=== PATIENT | male | born 1975 | race Caucasian/White ===

== ENCOUNTER 2016-11-13 10:10 | Emergency (ER) | payer OTHER ==
--- NOTE | ~2016-11-13 | CT4 ---
[facility] A Service of [facility] RADIOLOGY TEXT RESULTS PATIENT: PRIETO RAJAN LOCATION: SED : 71 UNIT #: [id number] AGE: [address]: Shira Correa MD SEX: M ORDER DR: [id number] [id number] E MR#: [id number] Acc #: [id number] NAME: PRIETO RAJAN : 1975 SEX: M STUDY DATE/TIME: 11/13/2016 12:09 UNIT: SED ROOM: STUDY DESCRIPTION: CT Abd and Pelv Wo Cont Attending Physician: Shira Correa M.D. Ordering Physician: Shira Correa M.D. Primary Care Physician: No Primary Care Physician MEDICAL IMAGING REPORT This report is preliminary unless electronic signature is present. EXAM CT of the abdomen and pelvis without contrast. HISTORY Patient had appendectomy 5 months ago and has abdomen pain radiating to the back since then. COMPARISON 11/27/2015 TECHNIQUE Axial 3 mm images were obtained through the abdomen and pelvis without IV or oral contrast. This CT exam was performed with one or more of the following radiation dose reduction techniques: automatic exposure control, adjustment of mA and/or kV according to patient size, and iterative reconstruction. FINDINGS The lung bases are clear. The liver, gallbladder, spleen, pancreas, adrenal glands, and kidneys are normal. Coronal and sagittal reconstructions were generated. The appendix has been removed. The bowel appears normal. The bladder and prostate gland are normal. The bones are unremarkable. IMPRESSION 1. Prior appendectomy. 2. Otherwise, the study appears normal. [facility] A Service [facility] RADIOLOGY TEXT RESULTS PATIENT: PRIETO RAJAN LOCATION: SED : [birth year] UNIT #: [id number] AGE: [address]: Shira Correa MD SEX: M ORDER DR: Dictated by... Edy Maldonado M.D. THIS IS AN ELECTRONICALLY VERIFIED REPORT Edy Maldonado M.D. at 11/14/2016 7:21 AM ALFREDO/td TD: 11/13/2016 21:59 JOB #: [id number] MEDICAL IMAGING REPORT Page 1 of 1
[~2016-11-13 10:10] MED LIST: ASPIRIN ENTERI325 M1 DOB; BACTRIM DS TABL1 TA1 PO; BACTRIM DS TABL1 TA2 PO; BACTROBAN22 GM TP; DICLOFENAC DR PO; LORTAB 10/500 T1 TAB PO; MUSCLE RELAXER; NO MEDICATIONS; NORCO 5/325 TAB1 TAB PO; PAIN MEDS; PHENERGAN25 M1 PO; ROBAXIN500 MG PO; STOMACH PILL; VALIUM PO; VOLTAREN75 MG PO
[2016-11-13 11:39] LABS: URINE SOURCE CLEAN CATCH
[2016-11-13 11:41] LABS: URINE APPEARANCE CLEAR; URINE BILIRUBIN NEG (NEG); URINE BLOOD NEG (NEG); URINE COLOR YELLOW; URINE GLUCOSE NEG (NORM); URINE KETONE NEG (NEG); URINE LEUKOCYTE ESTERASE NEG (NEG); URINE NITRATE NEG (NEG); URINE PH 6.5 (5-8); URINE PROTEIN NEG (NEG); URINE UROBILINOGEN 0.2 MG/DL (NORM)
[2016-11-13 11:51] LABS: MICRO INDICATED? NO
== END 2016-11-13 12:51 | disposition home or self-care (01) ==
LOC: SED 10:10
PROVIDERS: Student in an Organized Health Care Education/Training Program
DX: L03.311 Cellulitis of abdominal wall (principal); F41.9 Anxiety disorder, unspecified; F17.200 Nicotine dependence, unspecified, uncomplicated
CPT/HCPCS: 74176; 81003; 99284